=== PATIENT | female | born 1975 | race Caucasian/White ===

== ENCOUNTER 2016-12-07 08:37 | Emergency (ER) | payer BC ==
[2016-12-07 08:50] VITALS: BP 151/93
--- NOTE | 2016-12-07 09:33 | RAD ---
HISTORY: Right wrist ulnar pain COMPARISONS: None VIEWS: 3, Frontal, lateral, and oblique views of the right wrist FINDINGS: BONE DENSITY: Normal. BONES: There is no displaced fracture. JOINTS: There is no arthropathy. ALIGNMENT: There is no dislocation. SOFT TISSUES: Unremarkable. OTHER FINDINGS: None. IMPRESSION: NO ACUTE OSSEOUS INJURY. IF SYMPTOMS PERSIST, RECOMMEND REPEAT IMAGING.
--- NOTE | 2016-12-07 09:41 | UC ---
Hand/Wrist HPI - HPI Summary HPI Summary: 41 yo female with the onset of right wrist pain last PM while trying to open oven She is right handed pain with supination/pronation - History Of Current Complaint Chief Complaint: UCUpperExtremity Stated Complaint: WRIST PAIN Time Seen by Provider: 12/07/16 08:52 Hx Last Menstrual Period: states not having one in past 2 years ?: Yes Onset/Duration: Sudden Onset, Lasting Hours Severity Initially: Moderate Severity Currently: Moderate Pain Intensity: 4 Pain Scale Used: 0-10 Numeric Character Of Pain: Dull, Aching Aggravating Factor(s): Movement, Other - supination the worse Associated Signs And Symptoms: Positive: Swelling Related History: Dominant Hand Right - Allergies/Home Medications Allergies/Adverse Reactions: Allergies Allergy/AdvReac Type Severity Reaction Status Date / Time Amoxicillin Allergy Rash Verified 12/07/16 08:50 Home Medications: Home Medications Ibuprofen [Ibuprofen 200 MG] 600 mg PO PRN 12/07/16 [History] PMH/Surg Hx/FS Hx/Imm Hx Previously Healthy: Yes - Surgical History Surgical History: Yes Surgery Procedure, Year, and Place: ear tubes as a child, eardrum repair - Family History Known Family History: Positive: Hypertension - Social History Alcohol Use: Weekly Substance Use Type: None Smoking Status (MU): Never Smoked Tobacco Review of Systems Constitutional: Negative Skin: Negative Eyes: Negative ENT: Negative Respiratory: Negative Cardiovascular: Negative Gastrointestinal: Negative Genitourinary: Negative Motor: Negative Neurovascular: Negative Musculoskeletal: Arthralgia Neurological: Negative Psychological: Negative All Other Systems Reviewed And Are Negative: Yes Physical Exam Triage Information Reviewed: Yes Appearance: Well-Appearing, No Pain Distress, Well-Nourished Vital Signs: Initial Vital Signs Temp 98.4 F 12/07/16 08:43 Pulse 59 12/07/16 08:43 Resp 16 12/07/16 08:43 BP 151/93 12/07/16 08:43 Pulse Ox 100 12/07/16 08:43 ENT: Positive: Hearing grossly normal. Negative: Nasal congestion, Nasal drainage, Trismus Neck: Positive: Supple, Nontender Respiratory: Positive: Lungs clear, Normal breath sounds, No respiratory distress, No accessory muscle use Cardiovascular: Positive: RRR, No Murmur Musculoskeletal: Positive: Other: - see image Neurological: Positive: Alert Psychological Exam: Normal Hand/Wrist Course/Dx - Differential Dx/Diagnosis Provider Diagnoses: right wrist injury ? triangular cartilage injury Discharge - Discharge Plan Condition: Stable Disposition: HOME Patient Education Materials: Wrist Injury (ED) Referrals: Saadia Grajeda MD [Medical Doctor] - If Needed (recheck next week if not markedly better) Additional Instructions: this may be due to a cartilage injury splint ice advil or aleve I suggest orthopedic follow up Your BP was higher than we'd like to see This may be due to discomfort I suggest you follow up with you provider for recheck next month Images Hands: 1 - pain here
== END 2016-12-07 09:49 | disposition home or self-care (01) ==
LOC: UCEAST 08:37
DX: S69.91XA Unspecified injury of right wrist, hand and finger(s), initial encounter (principal); X50.9XXA Other and unspecified overexertion or strenuous movements or postures, initial encounter; Y93.G3 Activity, cooking and baking; Y92.000 Kitchen of unspecified non-institutional (private) residence as the place of occurrence of the external cause; Y99.9 Unspecified external cause status
CPT/HCPCS: 99212; G0463

== ENCOUNTER 2017-07-15 01:11 | Emergency (ER) | payer SELFPAY ==
[2017-07-15] MEDS ORDERED: NS 0.9% 1000 ML* 1,000 ML IV ONE (01:27)
[2017-07-15] MEDS ORDERED: Iodixanol* (CONTRAST) 320 MG/ML 100 ML SDV IV ONE (01:52)
[2017-07-15 01:56] LABS: ABS Basophils 0.1 10^3/ul (0-0.2); ABS Eosinophils 0.4 10^3/ul (0-0.6); ABS Monocytes 0.6 10^3/ul (0-0.8); ABS Neutrophils 4.7 10^3/ul (1.5-7.7); ABS Nucleated RBC 0 10^3/ul; Hematocrit 41 % (35-47); Hemoglobin 14.7 g/dl (12.0-16.0); Lymphocyte % 25.5 % (25-47); Mean Corpuscular HGB Conc 36 g/dl (31-36); Mean Corpuscular Hemoglobin 35 pg (27-31); Mean Corpuscular Volume 97 fL (80-97); Mean Platelet Volume 10 um3 (7.4-10.4); Nucleated Red Blood Cells % 0; Platelet Count 141 10^3/ul (150-450); Red Blood Count 4.27 10^6/ul (4.0-5.4); Red Cell Distribution Width 14 % (10.5-15); White Blood Count 7.8 10^3/ul (3.5-10.8)
[2017-07-15 02:09] LABS: EGFR Non-African American 83.1 (>60)
[2017-07-15 04:44] VITALS: BP 131/82
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
--- NOTE | 2017-07-15 07:43 | RAD ---
INDICATION: Right knee pain COMPARISON: None TECHNIQUE: AP and lateral views were obtained. FINDINGS: The bony structures, joint spaces, and soft tissues are normal for age. IMPRESSION: NO ACUTE BONY FINDINGS
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
== END 2017-07-15 04:30 | disposition home or self-care (01) ==
LOC: ED 01:11
DX: F10.129 Alcohol abuse with intoxication, unspecified (principal); M25.511 Pain in right shoulder; S80.02XA Contusion of left knee, initial encounter; S80.01XA Contusion of right knee, initial encounter; S27.321A Contusion of lung, unilateral, initial encounter; Y90.7 Blood alcohol level of 200-239 mg/100 ml; V47.5XXA Car driver injured in collision with fixed or stationary object in traffic accident, initial encounter; Y92.9 Unspecified place or not applicable
CPT/HCPCS: 36415; 70450; 71260; 72125; 74177; 80053; 80320; 83605; 84484; 84702; 85025; 93005; 99283; G0480; Q9967